=== PATIENT | male | born 1945 | race Caucasian/White ===

== ENCOUNTER 2022-12-19 11:03 | Outpatient (CLI) | payer MEDICARE ==
--- NOTE | 2022-12-19 14:29 | XRAY Report ---
PROCEDURE: Chest 2 View X-Ray INDICATIONS: DYSPNEA TECHNIQUE: 2 views of the chest were acquired. COMPARISON: None. FINDINGS: Surgical changes and devices: None. Lungs and pleura: No pleural effusions or pneumothorax. Lungs are clear. Mediastinum: Mildly tortuous thoracic aorta with aortic arch calcifications are seen. Heart size is normal. Bones and chest wall: No suspicious bony lesions. Overlying soft tissues appear unremarkable. IMPRESSION: No acute cardiopulmonary process. Reviewed by: Malick Suarez MD on 12/19/2022 2:28 PM PDT Approved by: Malick Suarez MD on 12/19/2022 2:28 PM PDT Station ID: [id number]
== END 2022-12-19 23:59 | disposition home or self-care (01) ==
LOC: DI.S 11:03
PROVIDERS: ATTEND Emergency Medicine
DX: R06.00 Dyspnea, unspecified (principal)